=== PATIENT | female | born 1995 | race Caucasian/White ===

== ENCOUNTER 2016-08-01 19:14 | Emergency (ER) | payer BC ==
[~2016-08-01] VITALS: Ht 157.5 cm; Wt 70.0 kg
[~2016-08-01 19:14] MED LIST: DEPO-PROVER150 MG/M1 IM; ZOFRAN 4MG T4 MG/TAB PO
[2016-08-01 19:17] VITALS: TEMP 98.7
[2016-08-01] MEDS ORDERED: ORTHO TRI-CYCLE1 TA2 PO (19:19)
[2016-08-01 21:32] LABS: PH 6 (5-8); URINE APPEARANCE Clear; URINE BACTERIA Rare /hpf; URINE BILIRUBIN Negative (NEGATIVE); URINE BLOOD Negative (NEGATIVE); URINE COLOR Yellow; URINE GLUCOSE Negative (NEGATIVE); URINE KETONE Negative (NEGATIVE); URINE RBC 0-2 /hpf; URINE UROBILINOGEN Negative (NEGATIVE)
[2016-08-01] MEDS ORDERED: FLAGYL500 MG PO (22:21)
[2016-08-01 23:20] VITALS: BP 110/72; PULSE 70
[2016-08-01 23:54] LABS: CHLAMYDIA/TRACH by PCR Female NOT DETECTED; NEISSERIA GON by PCR Female DETECTED
== END 2016-08-01 23:21 | disposition home or self-care (01) ==
LOC: COL.ER 19:14
PROVIDERS: Nurse Practitioner
DX: N89.8 Other specified noninflammatory disorders of vagina (principal); R30.0 Dysuria; Z20.2 Contact with and (suspected) exposure to infections with a predominantly sexual mode of transmission
CPT/HCPCS: J0696

== ENCOUNTER 2016-08-06 14:58 | Emergency (ER) | payer BC ==
[~2016-08-06] VITALS: Ht 157.5 cm; Wt 70.5 kg
[~2016-08-06 14:58] MED LIST changes: +FLAGYL500 MG PO; +ORTHO TRI-CYCLE1 TA2 PO
[2016-08-06 15:09] VITALS: BP 114/61; TEMP 98.4
[2016-08-06 16:15] LABS: PH 6 (5-8); URINE APPEARANCE Clear; URINE BACTERIA None Seen /hpf; URINE BILIRUBIN Negative (NEGATIVE); URINE BLOOD 2+ (NEGATIVE); URINE COLOR Yellow; URINE GLUCOSE Negative (NEGATIVE); URINE KETONE Trace (NEGATIVE); URINE RBC 0-2 /hpf; URINE UROBILINOGEN Negative (NEGATIVE); URINE WBC 0-2 /hpf
[2016-08-06] MEDS ORDERED: MACROBID 1100 MG/CAP PO (16:32)
[2016-08-06 16:40] VITALS: PULSE 65
== END 2016-08-06 16:40 | disposition home or self-care (01) ==
LOC: COL.ER 14:58
PROVIDERS: Physician Assistant Medical
DX: N39.0 Urinary tract infection, site not specified (principal)

== ENCOUNTER 2016-12-03 07:12 | Emergency (ER) | payer BC ==
[~2016-12-03] VITALS: Ht 157.5 cm; Wt 68.2 kg
[~2016-12-03 07:12] MED LIST changes: +MACROBID 1100 MG/CAP PO
[2016-12-03 07:14] VITALS: TEMP 98
[2016-12-03 07:58] LABS: COLLECTION METHOD CLEAN CATCH
[2016-12-03 08:08] LABS: MUCOUS Present /lpf; PH 5 (5-8); SQUAMOUS EPITHELIAL 0-2 /hpf; URINE APPEARANCE Hazy; URINE BACTERIA None Seen /hpf; URINE BILIRUBIN Negative (NEGATIVE); URINE BLOOD Negative (NEGATIVE); URINE COLOR Yellow; URINE GLUCOSE Negative (NEGATIVE); URINE KETONE Negative (NEGATIVE); URINE LEUKOCYTE ESTERASE Negative (NEGATIVE); URINE PROTEIN(semi-quant) Negative (NEGATIVE); URINE RBC 0-2 /hpf; URINE WBC 0-2 /hpf
[2016-12-03 10:50] VITALS: BP 121/80; PULSE 63
[2016-12-03 11:02] LABS: CHLAMYDIA/TRACH by PCR Female NOT DETECTED; NEISSERIA GON by PCR Female NOT DETECTED
== END 2016-12-03 10:50 | disposition home or self-care (01) ==
LOC: COL.ER 07:12
PROVIDERS: Physician Assistant Medical
DX: N83.201 Unspecified ovarian cyst, right side (principal); N89.8 Other specified noninflammatory disorders of vagina

== ENCOUNTER 2019-02-27 00:37 | Emergency (ER) | payer OTHER ==
[~2019-02-27] VITALS: Ht 157.5 cm; Wt 79.5 kg
[2019-02-27 00:43] VITALS: TEMP 97.1
[2019-02-27 01:10] LABS: COLLECTION METHOD CLEAN CATCH
[2019-02-27] MEDS ORDERED: OMNICEF 300MG300 MG PO (01:52)
[2019-02-27 02:13] LABS: MUCOUS Present /lpf; PH 6 (5-8); SQUAMOUS EPITHELIAL 0-2 /hpf; URINE APPEARANCE Clear; URINE BACTERIA Rare /hpf; URINE BILIRUBIN Negative (NEGATIVE); URINE BLOOD Negative (NEGATIVE); URINE COLOR Yellow; URINE GLUCOSE Negative (NEGATIVE); URINE KETONE Negative (NEGATIVE); URINE LEUKOCYTE ESTERASE Negative (NEGATIVE); URINE NITRATE Negative (NEGATIVE); URINE PROTEIN(semi-quant) Negative (NEGATIVE); URINE RBC 0-2 /hpf; URINE UROBILINOGEN >=4.0 mg/dL (NEGATIVE)
[2019-02-27 02:30] VITALS: BP 119/70; PULSE 70
== END 2019-02-27 02:30 | disposition home or self-care (01) ==
LOC: COL.ER 00:37
PROVIDERS: Physician Assistant
DX: O26.891 Other specified pregnancy related conditions, first trimester (principal); R30.0 Dysuria; Z3A.01 Less than 8 weeks gestation of pregnancy
CPT/HCPCS: J0696

== ENCOUNTER 2023-06-27 21:47 | Emergency (ER) | payer OTHER ==
[~2023-06-27] VITALS: Ht 157.5 cm; Wt 95.5 kg
[~2023-06-27 21:47] MED LIST changes: +OMNICEF 300MG300 MG PO
[2023-06-27] MEDS ORDERED: NS 1,000 ML IV ONE (23:45)
[2023-06-27] MEDS ORDERED: Ondansetron 4 MG/2 ML VIAL IV ONE (23:45)
[2023-06-28 00:18] LABS: COLLECTION METHOD CLEAN CATCH
[2023-06-28 00:19] LABS: BASO % 0.5 % (0.0-2.0); EOS # 0.2 K/mm3 (0.0-0.7); EOS % 1.7 % (0.0-4.0); GRAN # 4.5 K/mm3 (1.4-6.5); GRAN % 51.1 % (42.2-75.2); HEMATOCRIT 39.8 % (37.0-47.0); HEMOGLOBIN 13.2 g/dl (12.5-16.0); LYMPH # 3.4 K/mm3 (1.2-3.4); LYMPH % 38.7 % (20.0-51.0); MEAN CELL VOLUME 86 fl (80.0-100.0); MEAN CORPUSCULAR HEMOGLOBIN 29 pg (27-31); MEAN CORPUSCULAR HGB CONC 33 g/dl (33.0-37.0); MEAN PLATELET VOLUME 11.1 fl (7.4-10.4); MONO # 0.7 K/mm3 (0.1-0.6); MONO % 7.8 % (1.7-9.3); PLATELET COUNT 234 K/mm3 (130-400); RED BLOOD COUNT 4.62 M/mm3 (4.10-5.30); REDCELL DISTRIBUTION WIDTH-CV 12.5 % (11.5-14.5)
[2023-06-28 00:38] LABS: PH 6.5 (5.0-8.5); URINE APPEARANCE CLEAR (CLEAR/HAZY); URINE BLOOD NEGATIVE (NEGATIVE); URINE COLOR YELLOW (YELLOW); URINE GLUCOSE NEGATIVE (NEGATIVE); URINE KETONE NEGATIVE (NEGATIVE); URINE NITRATE NEGATIVE (NEGATIVE); URINE PROTEIN(semi-quant) NEGATIVE (NEGATIVE)
[2023-06-28 00:39] LABS: ALANINE AMINOTRANSFERASE 11 U/L (0-55); ALBUMIN 3.7 g/dL (3.5-5.0); ALKALINE PHOSPHATASE 70 U/L (40-150); ANION GAP 10 mmol/L (7-16); AST,SGOT 11 U/L (5-34); BILIRUBIN,TOTAL 0.3 mg/dL (0.2-1.2); BLOOD UREA NITROGEN 12 mg/dL (7-19); CALCIUM 9.2 mg/dL (8.4-10.2); CHLORIDE 109 mEq/L (98-107); CREATININE, serum 0.81 mg/dL (0.57-1.11); GLUCOSE 101 mg/dL (70-99); LIPASE 23 U/L (8-78); POTASSIUM 3.9 mEq/L (3.5-4.5); SODIUM 143 mEq/L (136-145); TOTAL PROTEIN 6.9 g/dl (6.2-8.1)
[2023-06-28] MEDS ORDERED: Famotidine 20 MG TAB PO ONE (00:45)
[2023-06-28] MEDS ORDERED: Mag/Al Hydrox/Simeth Susp 30 ML CUP PO ONE (00:45)
[2023-06-28] MEDS ORDERED: Ketorolac 15 MG/ML VIAL IV ONE (00:45)
[2023-06-28 00:46] LABS: TROPONIN-I < 0.010 ng/mL (0.00-0.033)
[2023-06-28 01:39] VITALS: BP 102/54; PULSE 68; TEMP 98
== END 2023-06-28 01:39 | disposition home or self-care (01) ==
LOC: COL.ER 21:47
PROVIDERS: Nurse Practitioner Primary Care
DX: R10.13 Epigastric pain (principal); R10.11 Right upper quadrant pain; R11.2 Nausea with vomiting, unspecified
CPT/HCPCS: J1885; J2405; J7030